=== PATIENT | male | born 1960 | race Caucasian/White ===

== ENCOUNTER 2016-07-11 03:02 | Inpatient (IN) | payer OTHER ==
[~2016-07-11] VITALS: Ht 177.8 cm; Wt 70.3 kg
[~2016-07-11 03:02] MED LIST: ALDACTONE 25MG25 MG PO; ASPIR 8181 MG PO; BACTROBAN OINT22 GM EXT; CLARITIN10 MG PO; CLONIDINE HCL0.2 MG PO; CORDARONE 200M200 MG PO; COREG 25MG TAB25 MG PO; ENTRESTO PO; FLEXERIL 10 MG10 MG PO; HABITROL 14 MG P1 EA TD; HYDRALAZINE HCL25 MG PO; IMDUR ER TAB 6060 MG PO; KENALOG CREAM 080 GM EXT; NEURONTIN800 MG PO; NORVASC 5 MG TAB5 MG PO; PLAVIX 75 MG TA75 MG PO; VALIUM 5 MG TAB5 MG PO; ZANTAC 150 MG150 MG PO
[2016-07-11] MEDS ORDERED: CLARITIN 10MG T10 MG PO (05:00)
[2016-07-11] MEDS ORDERED: LIORESAL TAB 1010 MG PO (05:00)
[2016-07-11] MEDS ORDERED: HYDRALAZINE HCL25 MG PO (05:01)
[2016-07-11] MEDS ORDERED: CATAPRES 0.1MG0.1 MG PO (05:02)
[2016-07-11 09:05] LABS: BUN/CREATININE RATIO 8 (0-10)
[2016-07-12 04:16] LABS: BUN/CREATININE RATIO 8 (0-10)
[2016-07-13 03:44] LABS: HEMOGLOBIN 12.8 gm/dl (14.0-17.5); RED BLOOD COUNT 4.37 M/UL (4.20-5.50); WHITE BLOOD COUNT 5.1 K/UL (4.5-11.0)
[2016-07-13 04:00] LABS: BUN/CREATININE RATIO 7 (0-10)
[2016-07-13 18:28] LABS: HEMOGLOBIN 13.1 gm/dl (14.0-17.5); RED BLOOD COUNT 4.43 M/UL (4.20-5.50)
[2016-07-13 19:08] LABS: BUN/CREATININE RATIO 7 (0-10)
[2016-07-14 04:10] LABS: HEMOGLOBIN 11.8 gm/dl (14.0-17.5); RED BLOOD COUNT 4.08 M/UL (4.20-5.50); WHITE BLOOD COUNT 4.9 K/UL (4.5-11.0)
[2016-07-14 05:27] LABS: BUN/CREATININE RATIO 7 (0-10)
[2016-07-14] MEDS ORDERED: CORDARONE 200M200 MG PO (12:28)
[2016-07-14] MEDS ORDERED: NORVASC10 MG PO (12:29)
[2016-07-14] MEDS ORDERED: COREG 25MG TAB25 MG PO (12:29)
[2016-07-14] MEDS ORDERED: LEXAPRO5 MG PO (12:30)
[2016-07-14] MEDS ORDERED: SODIUM CHLORIDE1 G1 PO (12:31)
[2016-10-01] MEDS ORDERED: CORDARONE 200M200 MG PO (13:29)
[2016-10-07] MEDS ORDERED: AUGMENTIN TAB875 MG PO (12:18)
[2016-10-22] MEDS ORDERED: AMIODARONE HCL200 MG PO (11:50)
[2016-10-22] MEDS ORDERED: LIPITOR TAB 2020 MG PO (11:55)
== END 2016-07-14 13:30 | disposition home or self-care (01) | DRG 250 ==
LOC: CCU 04:45
PROVIDERS: Emergency Medicine; Internal Medicine; ADMIT Internal Medicine
PROC: 4A023N7 Measurement of Cardiac Sampling and Pressure, Left Heart, Percutaneous Approach (ICD-10-PCS; principal; 2016-07-13)
PROC: B2111ZZ Fluoroscopy of Multiple Coronary Arteries using Low Osmolar Contrast (ICD-10-PCS; principal; 2016-07-13)
PROC: 02C03ZZ Extirpation of Matter from Coronary Artery, One Artery, Percutaneous Approach (ICD-10-PCS; principal; 2016-07-13)
PROC: 02703ZZ Dilation of Coronary Artery, One Artery, Percutaneous Approach (ICD-10-PCS; principal; 2016-07-13)
PROC: B2151ZZ Fluoroscopy of Left Heart using Low Osmolar Contrast (ICD-10-PCS; principal; 2016-07-13)
DX: I21.4 Non-ST elevation (NSTEMI) myocardial infarction (principal); I49.01 Ventricular fibrillation; I50.22 Chronic systolic (congestive) heart failure; E87.1 Hypo-osmolality and hyponatremia; I47.2 Ventricular tachycardia; I25.10 Atherosclerotic heart disease of native coronary artery without angina pectoris; I11.0 Hypertensive heart disease with heart failure; J44.9 Chronic obstructive pulmonary disease, unspecified; I73.9 Peripheral vascular disease, unspecified; F41.9 Anxiety disorder, unspecified; I25.5 Ischemic cardiomyopathy; F32.9 Major depressive disorder, single episode, unspecified; I08.1 Rheumatic disorders of both mitral and tricuspid valves; Z95.1 Presence of aortocoronary bypass graft; F17.210 Nicotine dependence, cigarettes, uncomplicated; Z88.5 Allergy status to narcotic agent; Z79.82 Long term (current) use of aspirin; Z79.01 Long term (current) use of anticoagulants; Z79.899 Other long term (current) drug therapy; Z95.810 Presence of automatic (implantable) cardiac defibrillator
CPT/HCPCS: 36415; 80048; 80053; 80061; 82550; 82553; 83735; 83930; 83935; 84300; 84439; 84443; 84484; 85027; 85347; 93005; C1757; C1769; C1887; J0171; J0461; J0583; J1644; J1650; J2250; J2370; J3010; J7030; J7040; Q9963

== ENCOUNTER 2016-08-03 19:40 | Inpatient (IN) | payer OTHER ==
[~2016-08-03] VITALS: Ht 180.3 cm; Wt 74.1 kg
[~2016-08-03 19:40] MED LIST changes: +CATAPRES 0.1MG0.1 MG PO; +CLARITIN 10MG T10 MG PO; +LEXAPRO5 MG PO; +LIORESAL TAB 1010 MG PO; +NORVASC10 MG PO; +SODIUM CHLORIDE1 G1 PO
[2016-08-03 21:47] LABS: HEMOGLOBIN 13.5 gm/dl (14.0-17.5); RED BLOOD COUNT 4.52 M/UL (4.20-5.50)
[2016-08-04] MEDS ORDERED: AMIODARONE HCL400 MG PO (04:42)
[2016-08-04] MEDS ORDERED: ISOSORBIDE MONO60 MG PO (04:43)
[2016-08-04] MEDS ORDERED: VALIUM 5 MG TAB5 MG PO (04:43)
[2016-08-04] MEDS ORDERED: NEURONTIN 400400 MG PO (04:43)
[2016-08-04] MEDS ORDERED: NORVASC 5 MG TAB5 MG PO (04:44)
[2016-08-04] MEDS ORDERED: COREG 3.125M3.125 MG PO (04:44)
[2016-08-04] MEDS ORDERED: SODIUM CHLORIDE1 GM PO (04:45)
[2016-08-04] MEDS ORDERED: ESCITALOPRAM OXA5 MG PO (04:45)
[2016-08-04 05:07] LABS: HEMOGLOBIN 12.9 gm/dl (14.0-17.5); RED BLOOD COUNT 4.34 M/UL (4.20-5.50)
[2016-08-04 05:09] LABS: WHITE BLOOD COUNT 11.1 K/UL (4.5-11.0)
[2016-08-05 04:07] LABS: RED BLOOD COUNT 4.03 M/UL (4.20-5.50); WHITE BLOOD COUNT 8.7 K/UL (4.5-11.0)
[2016-08-05 04:33] LABS: BUN/CREATININE RATIO 11 (0-10)
[2016-08-06 03:32] LABS: HEMOGLOBIN 11.3 gm/dl (14.0-17.5); RED BLOOD COUNT 3.8 M/UL (4.20-5.50); WHITE BLOOD COUNT 8.1 K/UL (4.5-11.0)
[2016-08-06 03:49] LABS: BUN/CREATININE RATIO 13 (0-10)
[2016-08-07 03:29] LABS: WHITE BLOOD COUNT 7.4 K/UL (4.5-11.0)
[2016-08-07 03:34] LABS: RED BLOOD COUNT 3.36 M/UL (4.20-5.50)
[2016-08-07 03:52] LABS: BUN/CREATININE RATIO 15 (0-10)
[2016-08-08 04:30] LABS: HEMOGLOBIN 10.8 gm/dl (14.0-17.5); RED BLOOD COUNT 3.6 M/UL (4.20-5.50); WHITE BLOOD COUNT 7.9 K/UL (4.5-11.0)
[2016-08-08 04:58] LABS: BUN/CREATININE RATIO 20 (0-10)
[2016-08-09 04:06] LABS: HEMOGLOBIN 11.5 gm/dl (14.0-17.5); RED BLOOD COUNT 3.85 M/UL (4.20-5.50)
[2016-08-09 04:21] LABS: WHITE BLOOD COUNT 10.5 K/UL (4.5-11.0)
[2016-08-09 04:31] LABS: BUN/CREATININE RATIO 30 (0-10)
[2016-08-09 16:19] LABS: BUN/CREATININE RATIO 30 (0-10)
[2016-08-10 03:52] LABS: HEMOGLOBIN 11.7 gm/dl (14.0-17.5); RED BLOOD COUNT 3.91 M/UL (4.20-5.50); WHITE BLOOD COUNT 9.4 K/UL (4.5-11.0)
[2016-08-10 04:19] LABS: BUN/CREATININE RATIO 39 (0-10)
[2016-08-11 04:05] LABS: BUN/CREATININE RATIO 37 (0-10)
[2016-08-12 04:33] LABS: BUN/CREATININE RATIO 29 (0-10)
[2016-08-13 03:52] LABS: BUN/CREATININE RATIO 27 (0-10)
[2016-08-15 04:18] LABS: HEMOGLOBIN 11.1 gm/dl (14.0-17.5); RED BLOOD COUNT 3.78 M/UL (4.20-5.50); WHITE BLOOD COUNT 9.9 K/UL (4.5-11.0)
[2016-08-15 04:48] LABS: BUN/CREATININE RATIO 17 (0-10)
[2016-08-15] MEDS ORDERED: PLAVIX 75 MG TA75 MG PO (13:14)
[2016-08-15] MEDS ORDERED: LASIX40 MG PO (13:16)
[2016-08-15] MEDS ORDERED: MAGIC MOUTHWASH PO (13:18)
[2016-08-15] MEDS ORDERED: MEXITIL CAP 20200 MG PO (13:19)
[2016-08-15] MEDS ORDERED: ENTRESTO PO (13:22)
[2016-08-15] MEDS ORDERED: FOLIC ACID 1 MG1 MG PO (13:23)
[2016-10-01] MEDS ORDERED: CORDARONE 200M200 MG PO (13:29)
[2016-10-07] MEDS ORDERED: AUGMENTIN TAB875 MG PO (12:18)
[2016-10-22] MEDS ORDERED: AMIODARONE HCL200 MG PO (11:50)
[2016-10-22] MEDS ORDERED: LIPITOR TAB 2020 MG PO (11:55)
== END 2016-08-15 15:47 | disposition home health service (06) | DRG 308 ==
LOC: ER1 19:40 → CCU 08-04 02:00 → PROG CARE 08-04 02:00 → ZEROF 08-04 02:00 → CCU 08-04 04:46 → PROG CARE 08-13 19:45
PROVIDERS: Family Medicine; Internal Medicine; Internal Medicine Infectious Disease; Internal Medicine Nephrology; Internal Medicine Pulmonary Disease; ADMIT Hospitalist
DX: I47.2 Ventricular tachycardia (principal); I50.23 Acute on chronic systolic (congestive) heart failure; J96.01 Acute respiratory failure with hypoxia; E87.1 Hypo-osmolality and hyponatremia; N17.9 Acute kidney failure, unspecified; J44.1 Chronic obstructive pulmonary disease with (acute) exacerbation; E53.8 Deficiency of other specified B group vitamins; I25.5 Ischemic cardiomyopathy; Z95.810 Presence of automatic (implantable) cardiac defibrillator; R91.8 Other nonspecific abnormal finding of lung field; I25.10 Atherosclerotic heart disease of native coronary artery without angina pectoris; M62.50 Muscle wasting and atrophy, not elsewhere classified, unspecified site; R94.5 Abnormal results of liver function studies; Z51.89 Encounter for other specified aftercare; Z79.899 Other long term (current) drug therapy; Z79.02 Long term (current) use of antithrombotics/antiplatelets; Z95.1 Presence of aortocoronary bypass graft; F41.9 Anxiety disorder, unspecified; F32.9 Major depressive disorder, single episode, unspecified; M54.9 Dorsalgia, unspecified; G89.29 Other chronic pain; I25.2 Old myocardial infarction; Z95.5 Presence of coronary angioplasty implant and graft; E78.5 Hyperlipidemia, unspecified; Z88.5 Allergy status to narcotic agent; I73.9 Peripheral vascular disease, unspecified; Z82.49 Family history of ischemic heart disease and other diseases of the circulatory system; Z83.3 Family history of diabetes mellitus; F17.210 Nicotine dependence, cigarettes, uncomplicated; R55 Syncope and collapse; I11.0 Hypertensive heart disease with heart failure
CPT/HCPCS: 36415; 36600; 70450; 71010; 80048; 80053; 80202; 82533; 82550; 82553; 82570; 82607; 82746; 82803; 83540; 83550; 83735; 83874; 83880; 83935; 84100; 84156; 84295; 84300; 84439; 84443; 84484; 85025; 85027; 86140; 87040; 93005; 94640; 94660; 94664; 96374; 96375; 97116; 97535; 99285; J1940; J2001; J2543; J2550; J2930; J3370; J7030; J7050; J7070

== ENCOUNTER → 2016-09-12 | Outpatient (CLI) | payer OTHER ==
[~2016-09-12] MED LIST changes: +AMIODARONE HCL200 MG PO; +AMIODARONE HCL400 MG PO; +AUGMENTIN TAB875 MG PO; +COREG 3.125M3.125 MG PO; +ESCITALOPRAM OXA5 MG PO; +FOLIC ACID 1 MG1 MG PO; +ISOSORBIDE MONO60 MG PO; +LASIX40 MG PO; +LIPITOR TAB 2020 MG PO; +MAGIC MOUTHWASH PO; +MEXITIL CAP 20200 MG PO; +NEURONTIN 400400 MG PO; +SODIUM CHLORIDE1 GM PO
== END ==
LOC: EXRD 15:01
DX: I50.22 Chronic systolic (congestive) heart failure (principal); R91.8 Other nonspecific abnormal finding of lung field
CPT/HCPCS: 71020

== ENCOUNTER → 2016-09-12 | Outpatient (CLI) | payer OTHER | LOC: HEART 5 13:43 | DX: J96.90 Respiratory failure, unspecified, unspecified whether with hypoxia or hypercapnia (principal); F17.210 Nicotine dependence, cigarettes, uncomplicated; R94.2 Abnormal results of pulmonary function studies | CPT/HCPCS: 94060; 94729 ==